=== PATIENT | female | born 1995 | race Hispanic/Latino ===

== ENCOUNTER 2017-07-13 11:06 | Emergency (ER) | payer MEDICAID ==
[2017-07-13 12:13] LABS: APPEARANCE,URINE Turbid (CLEAR); BILIRUBIN,URINE Negative (NEGATIVE); COLOR,URINE Dark Yellow (YELLOW); GLUCOSE, URINE (UA) Negative (NEGATIVE); KETONES,URINE Negative (NEGATIVE); LEUKOCYTE ESTERASE ,URINE Small (NEGATIVE); NITRATE,URINE Negative (NEGATIVE); OCCULT BLOOD,URINE Negative (NEGATIVE); PH,URINE 6.5 (5.0-8.0); PROTEIN,URINE Trace (NEGATIVE)
[2017-07-13 12:20] LABS: HCG,QUAL RESULT NEGATIVE (NEGATIVE)
[2017-07-13 12:27] LABS: RBC,URINE None Seen /HPF (0-1)
[2017-07-13 12:28] LABS: BACTERIA,URINE Moderate /HPF (None Seen); MUCUS,URINE Many LPF (None Seen); SQUAMOUS EPITHELIAL CELL,UR Moderate /HPF (0-2)
== END 2017-07-13 11:43 | disposition home or self-care (01) ==
LOC: EDH 11:06
DX: L73.2 Hidradenitis suppurativa (principal); B37.9 Candidiasis, unspecified
CPT/HCPCS: 81001; 81025

== ENCOUNTER 2020-06-30 19:13 | Emergency (ER) | payer MEDICAID ==
[2020-06-30] MEDS ORDERED: ACETAMINOPHEN 500 MG TABLET ONE (19:53)
[2020-06-30] MEDS ORDERED: IBUPROFEN 600 MG TABLET ONE (20:53)
[2020-06-30] MEDS ORDERED: LORAZEPAM 0.5 MG TABLET ONE (20:53)
== END 2020-06-30 21:30 | disposition home or self-care (01) ==
LOC: EDH 19:13
DX: J02.9 Acute pharyngitis, unspecified (principal); R50.9 Fever, unspecified; R05 Cough; Z20.822 Contact with and (suspected) exposure to COVID-19; F41.9 Anxiety disorder, unspecified; E03.9 Hypothyroidism, unspecified
CPT/HCPCS: 87426; 87804

== ENCOUNTER 2020-11-04 17:44 | Emergency (ER) | payer MEDICAID ==
[~2020-11-04] VITALS: Ht 160 cm; Wt 93.4 kg
[2020-11-04 17:46] VITALS: BP 113/72
[2020-11-04 19:19] LABS: APPEARANCE,URINE Cloudy (CLEAR); BILIRUBIN,URINE Small (NEGATIVE); COLOR,URINE Dark Yellow (YELLOW); GLUCOSE, URINE (UA) Negative (NEGATIVE); KETONES,URINE >=80 mg/dL (NEGATIVE); LEUKOCYTE ESTERASE ,URINE Trace (NEGATIVE); NITRATE,URINE Positive (NEGATIVE); OCCULT BLOOD,URINE Large (NEGATIVE); PROTEIN,URINE 300 mg/dL (NEGATIVE)
[2020-11-04] MEDS ORDERED: ACETAMINOPHEN 500 MG TABLET PO ONE (19:30)
[2020-11-04 19:46] LABS: BACTERIA,URINE Few /HPF (None Seen); MUCUS,URINE Few LPF (None Seen); SQUAMOUS EPITHELIAL CELL,UR Few /HPF (0-2)
[2020-11-04] MEDS ORDERED: ACETAMINOPHEN 500 MG TABLET ONE (21:41)
[2020-11-04] MEDS ORDERED: GUAI10LI12 PO (21:58)
[2020-11-04] MEDS ORDERED: ACET-3194 PO (21:58)
[2020-11-04] MEDS ORDERED: ALBU8.5H8 IH (21:58)
[2020-11-04] MEDS ORDERED: CEPH500C2 PO (21:58)
[2020-11-04] MEDS ORDERED: PSEU120T62 PO (21:58)
[2020-11-04] MEDS ORDERED: IBUP-2070 PO (21:58)
[2020-11-04 22:06] VITALS: BP 116/74
== END 2020-11-04 22:24 | disposition home or self-care (01) ==
LOC: EDH 17:44
DX: U07.1 COVID-19 (principal); N39.0 Urinary tract infection, site not specified; F41.9 Anxiety disorder, unspecified; Z79.1 Long term (current) use of non-steroidal anti-inflammatories (NSAID); Z79.899 Other long term (current) drug therapy
CPT/HCPCS: 74176; 81001; 81025; 87077; 87088; 87186; 87635; 87804; 87880; C9803

== ENCOUNTER 2022-09-10 20:28 | Emergency (ER) | payer MEDICAID ==
[~2022-09-10] VITALS: Ht 162.6 cm; Wt 88.5 kg
[~2022-09-10 20:28] MED LIST: ACET-3194 PO; ALBU8.5H8 IH; CEPH500C2 PO; GUAI10LI14 PO; IBUP-2070 PO; PSEU120T62 PO
[2022-09-10 20:31] VITALS: BP 160/91
[2022-09-10] MEDS ORDERED: ACETAMINOPHEN 500 MG TABLET PO ONE (21:00)
== END 2022-09-10 21:14 | disposition home or self-care (01) ==
LOC: EDH 20:28
DX: R51.9 Headache, unspecified (principal); F41.9 Anxiety disorder, unspecified
CPT/HCPCS: 99282

== ENCOUNTER 2023-03-11 10:26 | Emergency (ER) | payer BC, MEDICAID ==
[~2023-03-11] VITALS: Ht 162.6 cm; Wt 81.6 kg
[~2023-03-11 10:26] MED LIST changes: +CYCL-309 PO; +IBUP-1493 PO
[2023-03-11] MEDS ORDERED: PREDNISONE 20 MG TABLET PO ONE (13:00)
[2023-03-11] MEDS ORDERED: IBUPROFEN 600 MG TABLET PO ONE (13:00)
[2023-03-11] MEDS ORDERED: AMOX/CLAV 875/125MG TAB PO ONE (13:00)
[2023-03-11] MEDS ORDERED: AMOX1TAB16 PO (13:59)
[2023-03-11] MEDS ORDERED: PRED20TA3 PO (13:59)
[2023-03-11 14:11] VITALS: BP 118/69; PULSE 88; RESP 18; O2SAT 99
== END 2023-03-11 14:14 | disposition home or self-care (01) ==
LOC: EDH 10:26
DX: H66.91 Otitis media, unspecified, right ear (principal); E03.9 Hypothyroidism, unspecified